=== PATIENT | male | born 1965 | race Caucasian/White ===

== ENCOUNTER 2016-05-01 20:16 | Emergency (ER) | payer MEDICAID ==
[2016-05-01 20:23] VITALS: BP 135/79; PULSE 78; RESP 14; TEMP 99.5; O2SAT 95
--- NOTE | 2016-05-01 20:56 | EDPHY ---
HPI/HX/ROS/PE/MDM Narrative: Chief complaint: Loose stools HPI: 51-year-old male states he woke up this morning incontinent of stool. He is currently a resident at [facility]. Patient states that he was seen at [facility] and was there from 11 in the morning full 630 at night. He had blood work urinalysis done which he states did not show anything. He was discharged there with paperwork for Bentyl and instructions to follow up with his primary care physician in a week if he still having symptoms. Patient states that he was told by the doctor there to go directly to this hospital. Patient states he has not had any pain. He has not had any loose bowel since early this morning. He did not have any symptoms during his care at [facility]. No fevers or chills. No nausea or vomiting. No abdominal pain. He is not certain as to why he was told to come to this hospital. ROS: 10 point Review of Systems is negative except as noted in the HPI. Physical exam: Gen: Awake, Alert, No Distress HEENT: Nose: no rhinorrhea Eyes: PERRLA, EOMI Mouth: Moist mucosa Neck: Supple, no JVD Chest: nontender, lungs clear to auscultation Heart: S1, S2 normal, no murmur Abd: Soft, non-tender, no guarding Back: no CVA tenderness, no midline tenderness Ext: no edema, non-tender Skin: no rash Neuro: CN II-XII intact, Sensation grossly intact, Strength 5/5 in bilateral upper and lower extremities ED Course: I have spoken with the ER [facility]. They confirmed that he was there and I do have his paperwork to confirm this as well. The doctor is no longer there who had cared for him earlier today. They state that do not have the complete chart on him at this time, however the patient was discharged from the department This is a patient who had that an episode of loose spells this morning. He has had none since that time. He had a complete workup including blood and urine evaluations at [facility]. He is without pain. He has a benign exam at this time. He is well-hydrated. He has been given discharge instructions and a prescription for Bentyl by the doctors at [facility]. My plan is to discharge him to follow up with primary care physician in about a week, return for worsening. General Time Seen by Provider: 05/01/16 20:32 Initial Vital Signs: Initial Vital Signs Temperature (C) 37.5 C 05/01/16 20:18 Heart Rate 78 05/01/16 20:18 Respiratory Rate 14 05/01/16 20:18 Blood Pressure 135/79 H 05/01/16 20:18 O2 Sat (%) 95 05/01/16 20:18 O2 Delivery Mode Room Air Allergies/Adverse Reactions: No Known Allergies Allergy (Verified 04/01/16 19:54) Home Medications: Medication Instructions Recorded Clonazepam 03/13/16 Haloperidol 05/01/16 Departure - Departure Disposition: Home, Routine, Self-Care Clinical Impression: Incontinence of feces Condition: Good Instructions: Acute Diarrhea (ED) Additional Instructions: Follow up with her primary care physician in about a week per the instructions from [facility] Emergency Department. You may take Bentyl for abdominal cramping per the prescription provided to by [facility] Emergency Department today. Return to the emergency depart for increasing pain, nausea, vomiting, profuse watery diarrhea, fevers, chills, or any concerns. Referrals: NONE *PRIMARY CARE P,. [Primary Care Provider] - As per Instructions [facility] [Outside] - As per Instructions
== END 2016-05-01 21:18 | disposition home or self-care (01) ==
DX: R15.9 Full incontinence of feces (principal)

== ENCOUNTER 2016-05-01 23:12 | Emergency (ER) | payer MEDICAID ==
[2016-05-01 23:16] VITALS: BP 124/84; PULSE 86; RESP 14; TEMP 98.8; O2SAT 96
--- NOTE | 2016-05-01 23:57 | EDPHY ---
H & P Stated Complaint: "I feel really bad" HPI/ROS: HPI CHIEF COMPLAINT: "I am tired, I would like to sleep here" HISTORY OF PRESENT ILLNESS: This patient very pleasant 51-year-old male significant past medical history for schizophrenia, the patient presents to the emergency room after he was recently discharged from the emergency room. Patient tells me that [facility] he had diarrhea he was sent to [facility] for medical evaluation of his diarrhea he was told that he was fine and discharged from [facility] back to [facility]. He went back to [facility] and they sent him here to [facility] for GI evaluation. He was seen by my colleague Dr. Loyd Malave earlier in the evening they did review the studies that [facility] everything checked out fine including blood work and urinalysis there is no further evaluation performed here in the emergency room as he had really no complaints. The patient was in the waiting room waiting for a way to get back to [facility] he told me that he decided he got sick of waiting did not want to go outside in the cold and checked back into the emergency room. His main complaint now is that he feels tired and is requesting sleepy here in the emergency room this evening. He has no complaints otherwise he denies pain anywhere denies nausea vomiting denies current active diarrhea a tells me that the diarrhea resolved earlier in the evening. When I explained him that since he has no focal medical complaint and would like to sleep here and that he is unable to do that he is agreeable to being discharged back to [facility]. Does understand he still needs to follow up his primary care doctor about his diarrhea. He has any further symptoms including worsening diarrhea, fever, abdominal pain or vomiting understands return to the ER. At this time he does appear well nontoxic no acute distress has no medical complaints and is requesting to sleep here. Past Medical History: Schizophrenia, recent diarrheal illness Social History: Lives at [facility] denies daily use of drugs alcohol tobacco products, also has a local apartment here. Family History: Noncontributory ROS REVIEW OF SYSTEMS: A comprehensive 10 point review of systems is otherwise negative aside from elements mentioned in the history of present illness. Exam Constitutional appears well nontoxic no acute distress, triage nursing summary reviewed, vital signs reviewed, awake/alert. Eyes normal conjunctivae and sclera, EOMI, PERRLA. HENT normal inspection, atraumatic, moist mucus membranes, no epistaxis, neck supple/ no meningismus, no raccoon eyes. Respiratory clear to auscultation bilaterally, normal breath sounds, no respiratory distress, no wheezing. Cardiovascular rate normal, regular rhythm, no murmur, no edema, distal pulses normal. Gastrointestinal nontender to palpation,soft, non-tender, no rebound, no guarding, normal bowel sounds, no distension, no pulsatile mass. Genitourinary no CVA tenderness. Musculoskeletal no midline vertebral tenderness, full range of motion, no calf swelling, no tenderness of extremities, no meningismus, good pulses, neurovascularly intact. Skin pink, warm, & dry, no rash, skin atraumatic. Neurologic awake, alert and oriented x 3, AAOx3, moves all 4 extremities equally, motor intact, sensory intact, CN II-XII intact, normal cerebellar, normal vision, normal speech. Psychiatric normal mood/affect. Heme/Lymph/Immune no lymphadenopathy. Differential Diagnosis: includes but is not limited to in a particular order, need for retirement, recent diarrheal illness, dehydration, fatigue, generalized weakness Medical Decision Making: this patient appears well with no focal medical complaint is requesting to sleep here in the emergency room after prolonged wait in the waiting room after he was discharged earlier. Again he has no active diarrhea he is not vomiting is no fever his vital signs are reassuring, his abdomen is soft nontender. He is agreeable being discharged back to his apartment. Will provide him a taxi to his apartment. Does understand follow-up [facility] about his diarrhea. Source: Patient - Personal History Current Tetanus/Diphtheria Vaccine: Yes Tetanus Vaccine Date: 2014 - Medical/Surgical History Hx Asthma: No Hx Chronic Respiratory Disease: Yes Hx Diabetes: No Hx Cardiac Disease: No Hx Renal Disease: No Hx Cirrhosis: No Hx Alcoholism: No Hx HIV/AIDS: No Hx Splenectomy or Spleen Trauma: No Other PMH: PMHx:Anxiety; COPD/emphysema; Schizophrenia; Crohns; sleep apnea, colitis, anemia. PSHx: Appendectomy; Bowel/colon resection, colostomy, Cholecystectomy, SBO, Entroqutainous fistula - Social History Smoking Status: Former smoker Constitutional: Initial Vital Signs Temperature (C) 37.1 C 05/01/16 23:14 Heart Rate 86 05/01/16 23:14 Respiratory Rate 14 05/01/16 23:14 Blood Pressure 124/84 H 05/01/16 23:14 O2 Sat (%) 96 05/01/16 23:14 O2 Delivery Mode Room Air Allergies/Adverse Reactions: No Known Allergies Allergy (Verified 04/01/16 19:54) Home Medications: Medication Instructions Recorded Clonazepam 03/13/16 Haloperidol 05/01/16 Departure - Departure Disposition: Home, Routine, Self-Care Clinical Impression: Diarrhea Qualifiers: Diarrhea type: unspecified type Qualifier Code: (R19.7) Diarrhea, unspecified Condition: Good Instructions: Acute Diarrhea (ED) Additional Instructions: 1. please stay well-hydrated drink lots of fluids. 2. do not eat spicy fatty greasy foods. 3.Please follow up [facility] about her diarrhea return emergency room if he has any worsening symptoms questions or concerns. This includes abdominal pain, fever, vomiting Referrals: NONE *PRIMARY CARE P,. [Primary Care Provider] - As per Instructions [facility] [Outside] - As per Instructions
== END 2016-05-02 00:10 | disposition home or self-care (01) ==
DX: R19.7 Diarrhea, unspecified (principal); J44.9 Chronic obstructive pulmonary disease, unspecified; Z87.891 Personal history of nicotine dependence

== ENCOUNTER 2016-05-08 14:44 | Emergency (ER) | payer MEDICAID ==
[2016-05-08 14:57] VITALS: BP 135/84; PULSE 88; RESP 18; TEMP 99.9; O2SAT 98
--- NOTE | 2016-05-08 15:10 | EDPHY ---
H & P Stated Complaint: Chest pain, resolved Time Seen by Provider: 05/08/16 15:05 HPI/ROS: CHIEF COMPLAINT: Atypical brief chest pain HISTORY OF PRESENT ILLNESS: The patient presents to the ED after he experienced a 4 minutes episode of chest pain that began after swallowing a burger. The patient denies any history of recent exertional chest pain or shortness of breath. The patient has no prior history of coronary artery disease. The patient denies any pleuritic chest pain. He denies asymmetric calf pain or swelling. He denies additional complaints. REVIEW OF SYSTEMS: A comprehensive 10 point review of systems is otherwise negative aside from elements mentioned in the history of present illness. Source: Patient - Personal History Current Tetanus/Diphtheria Vaccine: Yes Current Tetanus Diphtheria and Acellular Pertussis (TDAP): Yes Tetanus Vaccine Date: 2014 - Medical/Surgical History Hx Asthma: No Hx Chronic Respiratory Disease: Yes Hx Diabetes: No Hx Cardiac Disease: No Hx Renal Disease: No Hx Cirrhosis: No Hx Alcoholism: No Hx HIV/AIDS: No Hx Splenectomy or Spleen Trauma: No Other PMH: PMHx:Anxiety; COPD/emphysema; Schizophrenia; Crohns; sleep apnea, colitis, anemia. PSHx: Appendectomy; Bowel/colon resection, colostomy, Cholecystectomy, SBO, Entroqutainous fistula - Social History Smoking Status: Former smoker - Physical Exam Exam: General Appearance: Alert, no distress Eyes: Pupils equal and round no pallor or injection ENT, Mouth: Mucous membranes moist Respiratory: There are no retractions, lungs are clear to auscultation Cardiovascular: Regular rate and rhythm Gastrointestinal: Abdomen is soft and nontender, no masses, bowel sounds normal Neurological: A&O, normal motor function, normal sensory exam, normal cranial nerves Skin: Warm and dry, no rashes Musculoskeletal: Neck is supple nontender Extremities: symmetrical, full range of motion Psychiatric: Patient is oriented X 3, there is no agitation Constitutional: Initial Vital Signs Temperature (C) 37.7 C 05/08/16 14:55 Heart Rate 88 05/08/16 14:55 Respiratory Rate 18 05/08/16 14:55 Blood Pressure 135/84 H 05/08/16 14:55 O2 Sat (%) 98 05/08/16 14:55 O2 Delivery Mode Room Air Allergies/Adverse Reactions: No Known Allergies Allergy (Verified 04/01/16 19:54) Home Medications: Medication Instructions Recorded Haloperidol 05/01/16 cloZAPine 05/08/16 Medical Decision Making - Diagnostics EKG Interpretation: EKG: Complete interpretation has been separately recorded in the [facility] archive. Summary impression: Sinus rhythm, no ischemic changes noted ED Course/Re-evaluation: The patient presents to emergency department after a 4 minutes episode of atypical chest pain. The patient's EKG demonstrates no evidence of acute ischemia. The patient has no risk factors for cardiac disease. Do not feel that further workup is indicated at this point time. The patient is comfortable returning to the emergency department for any recurrent chest pain or other concern. The patient's chest pain occurred after swallowing a hamburger. I do believe it is most likely gastrointestinal in nature. Differential Diagnosis: Differential diagnosis considered includes esophageal spasm, pericarditis, acute coronary syndrome Departure - Departure Disposition: Home, Routine, Self-Care Clinical Impression: Chest pain in adult Condition: Good Instructions: Chest Pain (ED) Additional Instructions: 1. Return to the emergency department for any recurrent chest pain or other concerns. 2. Please follow up with [facility] as needed. Referrals: [facility] [Outside] - As per Instructions
--- NOTE | 2016-05-08 20:18 | CPEKG ---
Heart Rate: 88 RR Interval: 682 P-R Interval: 136 QRSD Interval: 88 QT Interval: 348 QTC Interval: 421 P Blairs: 70 QRS Blairs: 63 T Wave Blairs: 63 EKG Severity - NORMAL ECG - EKG Impression: SINUS RHYTHM Electronically Signed By: Mike Rodas 08-May-2016 20:21:37
== END 2016-05-08 15:32 | disposition home or self-care (01) ==
LOC: EDUNIT#
DX: R07.89 Other chest pain (principal); J44.9 Chronic obstructive pulmonary disease, unspecified; Z87.891 Personal history of nicotine dependence